=== PATIENT | male | born 1995 ===

== ENCOUNTER 2016-09-15 14:51 | Emergency (ER) | payer MEDICAID, OTHER ==
[2016-09-15 14:57] VITALS: BMI 28.3
[2016-09-15 14:58] VITALS: RESP 18; TEMP 98.2; O2SAT 98
--- NOTE | 2016-09-15 16:53 | RAD ---
PROCEDURE: Right Index finger radiographs. HISTORY: crush injury COMPARISON: None. TECHNIQUE: AP radiograph of the right hand, as well as spot oblique and lateral images of index finger were obtained. FINDINGS: RIGHT INDEX FINGER: Normal right index finger, without fracture or focal lesion. Remainder of the right hand (as seen on the AP view) grossly intact. JOINTS: Normal. SOFT TISSUES: Normal. OTHER FINDINGS: None. IMPRESSION: Normal right index finger radiographs.
--- NOTE | 2016-09-15 16:58 | C.PDOC ---
History Of Present Illness A 21 year old male presents to the emergency room with right index finger pain and swelling for 4 days. Patient reports that he closed the door on his index finger. Patient states that he drilled holes into the right index fingernail so that blood will be released. Patient denies any fever, chills, weakness, numbness, any sensory changes, or any other complaints. Chief Complaint (Nursing): Upper Extremity Problem/Injury History Per: Patient History/Exam Limitations: no limitations Onset/Duration Of Symptoms: Days (4) Current Symptoms Are (Timing): Still Present Quality: "Pain" Severity: Mild Exacerbating Factor(s): Nothing Recent travel outside of the [place]: No Past Medical History Reviewed: Historical Data, Nursing Documentation, Vital Signs Vital Signs: Last Vital Signs Temp 98.2 F 09/15/16 14:57 Pulse 70 09/15/16 17:05 Resp 18 09/15/16 17:05 BP 112/68 09/15/16 17:05 Pulse Ox 98 09/15/16 17:18 Family History: States: Unknown Family Hx - Social History Hx Alcohol Use: Yes Hx Substance Use: No - Immunization History Hx Tetanus Toxoid Vaccination: No Hx Influenza Vaccination: No Hx Pneumococcal Vaccination: No Review Of Systems Except As Marked, All Systems Reviewed And Found Negative. Constitutional: Negative for: Fever, Chills, Weakness Musculoskeletal: Positive for: Other (Right index finger pain and swelling. ) Neurological: Negative for: Weakness, Numbness Physical Exam - Physical Exam Appears: Well, Non-toxic Skin: Other (Subungual hemorrhage on the right iindex finger. ) Head: Atraumatic, Normacephalic Eye(s): bilateral: Normal Inspection Cardiovascular: Rhythm Regular Respiratory: Normal Breath Sounds, No Rales, No Rhonchi, No Wheezing Gastrointestinal/Abdominal: Soft, No Tenderness Extremity: Normal ROM, No Tenderness, No Pedal Edema, No Calf Tenderness, No Swelling Neurological/Psych: Oriented x3, Normal Speech, Normal Motor, Normal Sensation ED Course And Treatment O2 Sat by Pulse Oximetry: 98 - Other Rad Right Hand X-ray X-Ray: Interpreted by Me, Viewed By Me Interpretation: No acute fractures or dislocations. Progress Note: X-ray results were negative. Patient's finger was placed in a finger splint by instrumentation and controls technician. Patient is afebrile and is stable for discharge. Patient instructed to follow up with PMD within a few days, Disposition - Disposition Referrals: Chuy Baker MD [Staff Provider] - Disposition: HOME/ ROUTINE Disposition Time: 16:58 Condition: STABLE Additional Instructions: Follow up with PMD within 1-2 days. Return to ED if feel worse. Instructions: Subungual Hematoma (ED) - Clinical Impression Clinical Impression: Subungual hematoma of digit of hand - Scribe Statement The provider has reviewed the documentation as recorded by the Jose Turk Provider Scribe Attestation: All medical record entries made by the Jose were at my direction and personally dictated by me. I have reviewed the chart and agree that the record accurately reflects my personal performance of the history, physical exam, medical decision making, and the department course for this patient. I have also personally directed, reviewed, and agree with the discharge instructions and disposition.
[2016-09-15 17:07] VITALS: BP 112/68; PULSE 70
== END 2016-09-15 17:15 | disposition home or self-care (01) ==
LOC: C.ER 14:51
DX: S60.121A Contusion of right index finger with damage to nail, initial encounter (principal); W23.0XXA Caught, crushed, jammed, or pinched between moving objects, initial encounter